=== PATIENT | female | born 1990 | race Caucasian/White ===

== ENCOUNTER 2020-04-19 17:31 | Emergency (ER) | payer MEDICAID ==
[~2020-04-19] VITALS: Ht 167.6 cm; Wt 50.0 kg
[2020-04-19 17:41] VITALS: BP 109/73
[2020-04-19] MEDS ORDERED: PENI500T2 PO (18:12)
[2020-04-19] MEDS ORDERED: IBUP-1984 PO (18:15)
[2020-04-19] MEDS ORDERED: LIDO20SO24 TOP (18:15)
== END 2020-04-19 18:38 | disposition home or self-care (01) ==
LOC: ER 17:31
DX: K04.7 Periapical abscess without sinus (principal); F17.200 Nicotine dependence, unspecified, uncomplicated; Z56.0 Unemployment, unspecified; Z79.2 Long term (current) use of antibiotics; Z79.899 Other long term (current) drug therapy
CPT/HCPCS: 99283